=== PATIENT | female | born 1960 | race Caucasian/White ===

== ENCOUNTER 2023-09-18 18:37 | Emergency (ER) | payer MEDICARE, SELFPAY ==
[2023-09-18] VITALS (8 sets, daily range): BP systolic 127–177; BP diastolic 80–96; PULSE 91–102; RESP 14–18; TEMP 36.3; O2SAT 94–100
--- NOTE | ~2023-09-18 | CT_ITS ---
EXAMINATION: CT abdomen pelvis w con DATE: 09/18/2023 20:16 INDICATION: Abdominal pain TECHNIQUE: Computed tomography (CT) of the abdomen and pelvis was performed with 100 mL Omnipaque-350 intravenous contrast. Automated exposure control and iterative reconstruction technique were employe d. The dose-length product was 1307.34 mGy-cm. COMPARISON: 03/20/2015 FINDINGS: Calcified lingular nodule consistent with old granulomatous disease. Heart size is normal. Atheroscle rotic coronary artery calcification and/or stenting. No pericardial or pleural effusion. Small slidin g-type hiatal hernia with wall thickening of the distal esophagus suggesting esophagitis related to r eflux. Small region of focal hepatic steatosis at the ligamentum teres. Couple low-attenuation hepati c cysts the largest in the right hepatic lobe measuring 1.3 cm. Status post cholecystectomy. Spleen, pancreas and bilateral adrenal glands are normal. Bilateral very small renal cysts the largest on the right measuring 9 mm. Bowels including the appendix are normal. There is diffuse wall thickening of the bladder likely due to nearly decompressed state although differential would include cystitis. Ant everted uterus and bilateral adnexa are unremarkable. No free intraperitoneal gas or fluid. No pathol ogically enlarged abdominal or pelvic lymphadenopathy. There is calcified atherosclerosis of the aort a and many of the other arteries including at the proximal aspect of the left renal artery and the mo re cephalad of the paired right renal arteries. Mild lumbar and lower thoracic spondylosis. 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 3. Antegrade fixation pins extending from the greater trochanter caudally to the inferior margin of t he [id number]. IMPRESSION: 1. Small sliding-type hiatal hernia with wall thickening visualized distal esophagus which suggests e sophagitis related to reflux. 2. Wall thickening of the bladder due at least in part to decompressed state but differential would i nclude cystitis and would correlate with urinalysis. Reviewed, dictated and finalized at location A. [employer] IMPRESSION: 1. Small sliding-type hiatal hernia with wall thickening visualized distal esop hagus which suggests esophagitis related to reflux. 2. Wall thickening of the bladder due at least in part to decompressed state bu t differential would include cystitis and would correlate with urinalysis.
[2023-09-18 19:05] LABS: Basophils Percent Auto 0.2 % (0.2-1.2); Hemoglobin 18.7 g/dL (12.0-15.0); Immature Granulocyte Absolute 0.06 K/mm3 (0.00-0.031); Immature Granulocyte Percent A 0.5 % (0-0.5); Lymphocytes Percent Auto 7.5 % (18.3-44.2); Mean Corpuscular HGB Conc 34.6 g/dl (32-36); Mean Corpuscular Hemoglobin 31.7 pg (26-34); Mean Corpuscular Volume 91.5 fl (80-100); Mean Platelet Volume 9.1 fl (7.4-10.4); Monocytes Absolute Auto 0.8 K/mm3 (0.1-0.6); Monocytes Percent Auto 6.8 % (2.6-8.5); Neutrophils Absolute Auto 10.3 K/mm3 (1.3-6.7); Platelet Count Result 242 k/mm3 (150-375); Red Cell Distribution Width 12.3 % (11.5-14.5); White Blood Count 12.1 K/mm3 (4.5-10.0)
[2023-09-18 19:16] LABS: Alanine Aminotransferase 21 U/L (6-35); Albumin Level 4.5 g/dL (3.5-5.1); Alkaline Phosphatase 130 U/L (38-126); Anion Gap 12 mmol/L (8-16); Aspartate Amino Transferase 30 U/L (14-36); Bilirubin,Total 1.4 mg/dL (0.2-1.3); Blood Urea Nitrogen 28 mg/dL (7-17); Calcium 10.5 mg/dL (8.4-10.2); Carbon Dioxide 24 mmol/L (22-30); Chloride 100 mmol/L (98-107); Estimated CRCL calculation 58 ml/min; Estimated Glomerular Filt Rate 56; Glucose 258 mg/dL (65-110); Lipase 85 U/L (23-300); Sodium 136 mmol/L (137-145)
--- NOTE | 2023-09-18 19:56 | PC.NURSE ---
pt unable to urinate. pt went to the bathroom @1950 and only a drop of urine came out
--- NOTE | 2023-09-18 20:02 | ED.GENADULT ---
HPI - General Adult General Chief complaint: Nausea/Vomiting/Diarrhea Stated complaint: Vomiting- Diabetic Time Seen by Provider: 09/18/23 19:28 History of Present Illness HPI narrative: Patient is a 62-year-old female who presents emergency department with chief complaint of nausea vomiting and epigastric pain. Patient reports that she started having epigastric pain yesterday sent multiple episodes of nausea and vomiting. Patient reports that she has pain in the epigastric region reports that is nonradiating reports that she has had no diarrhea but does report that she has had multiple episodes of nonbilious nonbloody emesis. Related Data Home Medications Medication Instructions Recorded Confirmed atorvastatin 10 mg tablet 10 mg PO DAILY 12/03/20 08/25/22 azilsartan medoxomil 40 1 tablet PO DAILY 12/03/20 mg-chlorthalidone 12.5 mg tablet (Edarbyclor) fenofibrate 50 mg capsule 50 mg PO DAILY 12/03/20 icosapent ethyl 0.5 gram capsule 2 g PO BID 12/03/20 08/25/22 (Vascepa) mirabegron 25 mg tablet,extended 25 mg PO DAILY 12/03/20 08/25/22 release 24 hr (Myrbetriq) pantoprazole 40 mg granules 40 mg PO DAILY 12/03/20 delayed-release for susp in packet (Protonix) albuterol sulfate 90 mcg/actuation 1 inh inhalation Q4H 08/25/22 08/25/22 aerosol inhaler (ProAir HFA) aspirin 81 mg tablet,delayed 81 mg PO DAILY 08/25/22 08/25/22 release (Adult Aspirin Regimen) betamethasone, augmented 0.05 % 1 applic topical DAILY PRN 08/25/22 08/25/22 topical ointment (Diprolene (augmented)) carvedilol 12.5 mg tablet 12.5 mg PO Q12H 08/25/22 08/25/22 cholecalciferol (vitamin D3) 125 125 mcg PO DAILY 08/25/22 08/25/22 mcg (5,000 unit) capsule glipizide 10 mg tablet 10 mg PO DAILY 08/25/22 08/25/22 hydroxyzine HCl 25 mg tablet 25 mg PO QID PRN 08/25/22 08/25/22 insulin degludec 100 unit/mL (3 5 unit subcut DAILY 08/25/22 08/25/22 mL) subcutaneous pen (Tresiba FlexTouch U-100 insulin) mirabegron 25 mg tablet,extended 25 mg PO DAILY 08/25/22 08/25/22 release 24 hr (Myrbetriq) vitamin B complex (B 1 tablet PO DAILY 08/25/22 08/25/22 Complex-Vitamin B12 tablet) Allergies Allergy/AdvReac Type Severity Reaction Status Date / Time Sulfa (Sulfonamide Allergy Unknown Unknown Verified 08/25/22 08:55 Antibiotics) Review of Systems Review of Systems: A 10 system review of systems was completed on the patient and is negative except for what is stated in the HPI. Nursing and ancillary documentation was reviewed. PMFSH Past Medical History Medical History Heart attack Surgical History Surgical History H/O heart artery stent History of cholecystectomy History of exploratory laparotomy Family History Family History Mother Hypertension Mother Diabetes mellitus Hypertension Father Heart disease Grandparent Carcinoma of colon Diabetes mellitus Hypertension Heart disease Social History Social History Smoking status: Current every day smoker Tobacco type: cigarettes Alcohol intake: never Substance use: never Exam Narrative: GENERAL: Well-appearing, well-nourished, and in no acute distress. HEAD: Normocephalic, atraumatic. EYES: PERRLA and EOMI. ENT: Nares clear, no rhinorrhea or epistaxis. Mucous membranes moist. NECK: Supple. CHEST: Clear to auscultation. No respiratory distress. HEART: Regular rate and rhythm. No murmur heard. Normal peripheral pulses. ABDOMEN: Soft, Tenderness to palpation in the epigastric region, nondistended, normal active bowel sounds. EXTREMITIES: Normal range of motion. No edema. SKIN: Warm, dry, no rash. NEURO: No focal deficits. Alert and oriented x3. PSYCH: Normal mood and affect.
[2023-09-18] MEDS: PROCHLORPERAZINE EDISYLATE 10 MG/2 ML VIAL IV PUSH (20:17)
[2023-09-18] MEDS: SODIUM CHLORIDE 0.9% IV 1,000 ML 999 ML IV CONT ×2 (20:17→20:40)
[2023-09-18] MEDS: PANTOPRAZOLE SODIUM IV 40 MG VIAL IV PUSH (20:17)
[2023-09-18 21:52] LABS: Appearance Urine Clear (Clear); Bacteria Urine None Seen /hpf; Bilirubin Urine Negative (Negative); Blood Urine 1+ (Negative); Color Urine Yellow (Yellow); Glucose Urine UA 3+ mg/dL (Negative); Ketones Urine 1+ mg/dL (Negative); Leukocyte Esterase Ur Negative LEU/UL (Negative); Nitrate Urine Negative (Negative); Non Pathogenic Casts 0-2; Protein Urine 1+ mg/dL (Negative); RBC Urine 0-2 /hpf (0-2); Squamous Epithelial Cell Urine None seen /hpf (Few); WBC Urine 0-5 /hpf; pH Urine 6.5 (5.0-9.0)
[2023-09-18 21:53] LABS: Add Urine Microscopic? YES; Specific Grav Ur 1.063 (1.001-1.035)
== END 2023-09-18 22:51 | disposition home or self-care (01) ==
PROVIDERS: Emergency Medicine; Emergency Provider Emergency Medicine; PCP Family Medicine
DX: K29.70 Gastritis, unspecified, without bleeding (principal); I25.2 Old myocardial infarction; F17.210 Nicotine dependence, cigarettes, uncomplicated; Z95.1 Presence of aortocoronary bypass graft; Z90.49 Acquired absence of other specified parts of digestive tract; Z79.82 Long term (current) use of aspirin; Z79.4 Long term (current) use of insulin
CPT/HCPCS: 36415; 74177; 80053; 81001; 81025; 83690; 85025; 96361; 96374; 96375; 99284; C9113; J0780; J7030; Q9967

== ENCOUNTER 2024-03-14 20:08 | Emergency (ER) | payer MEDICARE, SELFPAY ==
--- NOTE | ~2024-03-14 | XR_ITS ---
EXAM: XR lumbar spine 2-3V DATE: 03/14/2024 22:06 HISTORY: pain in buttocks radiating down both left leg . COMPARISON: None available. FINDINGS: 5 nonrib-bearing lumbar-type vertebral bodies. Pedicles intact. Normal vertebral body alig nment. Vertebral body heights preserved. Multilevel moderate degenerative disc disease. Multilevel mo derate facet arthropathy. No fracture or dislocation. Atherosclerotic aortic calcification without ev ident aneurysm. IMPRESSION: No acute fracture or traumatic malalignment in the lumbar spine. Reviewed, dictated and finalized at location K.
[2024-03-14 20:33] VITALS: BP 151/78; PULSE 89; RESP 18; TEMP 36.6; O2SAT 98
--- NOTE | 2024-03-14 21:55 | ED.GENADULT ---
HPI - General Adult General Chief complaint: Extremity Injury, Lower Stated complaint: left leg pain/tingling Time Seen by Provider: 03/14/24 21:43 Source: patient Mode of arrival: ambulatory History of Present Illness HPI narrative: 63-year-old female presenting for left low extremity and back pain. She picked up but coffee table and moved it and was cleaning the house and bent over quite a bit. After she sat down she tried to get up and had a lot of pain in her left leg in the left buttock radiating down into the left foot region. Hurts a lot whenever she puts any pressure on it. No obvious trauma she notes but she did scrap picker a coffee table and was cleaning down and bending over a lot. No paresthesias. She has been ambulatory but with a lot of pain. No incontinence or inability to urinate. Normal bowel movement. No saddle anesthesia Related Data Home Medications Medication Instructions Recorded Confirmed atorvastatin 10 mg tablet 10 mg PO DAILY 12/03/20 08/25/22 azilsartan medoxomil 40 1 tablet PO DAILY 12/03/20 mg-chlorthalidone 12.5 mg tablet (Edarbyclor) fenofibrate 50 mg capsule 50 mg PO DAILY 12/03/20 icosapent ethyl 0.5 gram capsule 2 g PO BID 12/03/20 08/25/22 (Vascepa) mirabegron 25 mg tablet,extended 25 mg PO DAILY 12/03/20 08/25/22 release 24 hr (Myrbetriq) pantoprazole 40 mg granules 40 mg PO DAILY 12/03/20 delayed-release for susp in packet (Protonix) albuterol sulfate 90 mcg/actuation 1 inh inhalation Q4H 08/25/22 08/25/22 aerosol inhaler (ProAir HFA) aspirin 81 mg tablet,delayed 81 mg PO DAILY 08/25/22 08/25/22 release (Adult Aspirin Regimen) betamethasone, augmented 0.05 % 1 applic topical DAILY PRN 08/25/22 08/25/22 topical ointment (Diprolene (augmented)) carvedilol 12.5 mg tablet 12.5 mg PO Q12H 08/25/22 08/25/22 cholecalciferol (vitamin D3) 125 125 mcg PO DAILY 08/25/22 08/25/22 mcg (5,000 unit) capsule glipizide 10 mg tablet 10 mg PO DAILY 08/25/22 08/25/22 hydroxyzine HCl 25 mg tablet 25 mg PO QID PRN 08/25/22 08/25/22 insulin degludec 100 unit/mL (3 5 unit subcut DAILY 08/25/22 08/25/22 mL) subcutaneous pen (Tresiba FlexTouch U-100 insulin) mirabegron 25 mg tablet,extended 25 mg PO DAILY 08/25/22 08/25/22 release 24 hr (Myrbetriq) vitamin B complex (B 1 tablet PO DAILY 08/25/22 08/25/22 Complex-Vitamin B12 tablet) Allergies Allergy/AdvReac Type Severity Reaction Status Date / Time Sulfa (Sulfonamide Allergy Unknown Unknown Verified 03/14/24 20:37 Antibiotics) Review of Systems Review of Systems: All systems reviewed & are unremarkable except as noted in HPI and below PMFSH Past Medical History Medical History Heart attack Surgical History Surgical History H/O heart artery stent History of cholecystectomy History of exploratory laparotomy Family History Family History Mother Hypertension Mother Diabetes mellitus Hypertension Father Heart disease Grandparent Carcinoma of colon Diabetes mellitus Hypertension Heart disease Social History Social History Smoking status: Current every day smoker Tobacco type: cigarettes Alcohol intake: never Substance use: never Exam Narrative: Constitutional: Generally well appearing, no acute distress Head: Atraumatic, no deformities. Eyes: Pupils equal, round, and reactive to light. Neck: Supple, no tracheal deviation, no JVD. ENMT: Mucous membranes moist Cardiovascular: S1, S2 auscultated. No murmurs, rubs, or gallops. No S3/S4. Normal Distal pulses. No peripheral edema. Respiratory: No respiratory distress Musculoskeletal: Normal muscle tone and bulk. No obvious deformities over extremities. no midline spine tenderness. Mild left lower lissette
[2024-03-14] MEDS: HYDROcodone/acetaminophen (*CRX) 5-325 MG TABLET 1 TAB PO (22:07)
[2024-03-14] MEDS: KETOROLAC 30 MG/ML VIAL (*BKC) IM (22:07)
[2024-03-14 22:54] VITALS: BP 156/79; PULSE 86; RESP 16; O2SAT 96
== END 2024-03-14 22:55 | disposition home or self-care (01) ==
PROVIDERS: Emergency Provider Emergency Medicine; PCP Family Medicine
DX: M54.16 Radiculopathy, lumbar region (principal); I25.2 Old myocardial infarction; F17.210 Nicotine dependence, cigarettes, uncomplicated; Z90.49 Acquired absence of other specified parts of digestive tract; Z79.82 Long term (current) use of aspirin; Z79.84 Long term (current) use of oral hypoglycemic drugs; Z79.4 Long term (current) use of insulin; Z79.899 Other long term (current) drug therapy
CPT/HCPCS: 72100; 96372; 99283; A9270; J1885